=== PATIENT | female | born 1945 | race Caucasian/White ===

== ENCOUNTER 2017-03-16 16:49 | Emergency (ER) | payer MEDICAID ==
[~2017-03-16] VITALS: Ht 170.2 cm; Wt 117.9 kg
[~2017-03-16 16:49] MED LIST: ADALAT10 MG ORAL; VASOTEC10 MG ORAL
[2017-03-16] MEDS ORDERED: ATORVASTATIN CA20 MG ORAL (17:20)
[2017-03-16] MEDS ORDERED: ASPIR 8181 MG ORAL (17:20)
[2017-03-16] MEDS ORDERED: ENALAPRIL MALEA20 MG ORAL (17:20)
[2017-03-16] MEDS ORDERED: FUROSEMIDE40 MG ORAL (17:20)
[2017-03-16 17:38] VITALS: BP 102/62
[2017-03-16] MEDS ORDERED: TRAMADOL HCL50 MG ORAL (17:44)
[2017-03-16] MEDS ORDERED: SILVADENE20 GM TP (17:44)
[2017-03-16] MEDS ORDERED: Norco 5mg/325mg tab ORAL ONE (17:45)
[2017-03-16 18:16] VITALS: BP 102/62
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
== END 2017-03-16 18:18 | disposition home or self-care (01) ==
LOC: EMR 17:31
DX: T23.202A Burn of second degree of left hand, unspecified site, initial encounter (principal); X12.XXXA Contact with other hot fluids, initial encounter; Y93.G3 Activity, cooking and baking; Y92.9 Unspecified place or not applicable; I10 Essential (primary) hypertension
CPT/HCPCS: 16020; 99283; Z7502

== ENCOUNTER 2017-09-01 08:07 | Emergency (ER) | payer MEDICAID ==
[~2017-09-01] VITALS: Ht 177.8 cm; Wt 86.2 kg
[~2017-09-01 08:07] MED LIST changes: +ASPIR 8181 MG ORAL; +ATORVASTATIN CA20 MG ORAL; +ENALAPRIL MALEA20 MG ORAL; +FUROSEMIDE40 MG ORAL; +SILVADENE20 GM TP; +TRAMADOL HCL50 MG ORAL
[2017-09-01 08:25] VITALS: BP 146/65
--- NOTE | 2017-09-01 08:42 | Emergency Room Report ---
History of Present Illness General Chief Complaint: Upper Respiratory Illness Source: Patient Present Illness HPI This patient states that she has had an intermittent cough for the past couple weeks. Over the past 24 hours she has had worsening symptoms. She has had some sputum production. She states that she has chest pain with coughing and a sore throat. She denies fever or chills. She denies nausea or vomiting. She does have a history of 20 years of tobacco use. However, she quit smoking tobacco 10 years ago. She denies other drug or alcohol use. She does has a history of diabetes, hypertension and angina. She denies that she receive the seasonal influenza immunization this season. She has no other complaints. Allergies: Coded Allergies: No Known Allergies (Unverified , 04/09/16) Patient History Past Medical History: see triage record, DM, HTN, CAD Social History: Denies: smoking, alcohol use, drug use Reviewed Nursing Documentation: PMH: Agreed; PSxH: Agreed Nursing Documentation-PMH Past Medical History: No History, Except For Hx Hypertension: Yes Review of Systems All Other Systems: negative except mentioned in HPI Physical Exam Vital Signs Date Time Temp Pulse Resp B/P (MAP) Pulse Ox O2 Delivery O2 Flow Rate FiO2 09/01/17 08:12 98.1 70 20 156/105 96 Room Air 98.1 Sp02 EP Interpretation: reviewed, normal General Appearance: no apparent distress, alert, GCS 15, non-toxic Head: normocephalic, atraumatic Eyes: bilateral eye normal inspection, bilateral eye PERRL ENT: hearing grossly normal, normal pharynx, no angioedema, normal voice Neck: full range of motion, supple/symm/no masses Respiratory: chest non-tender, lungs clear, normal breath sounds, no respiratory distress, no retraction, no accessory muscle use, speaking full sentences Cardiovascular #1: regular rate, rhythm, no edema Gastrointestinal: normal bowel sounds, non tender, soft, non-distended, no guarding, no rebound Rectal: deferred Musculoskeletal: back normal, gait/station normal, normal range of motion, non- tender Neurologic: alert, oriented x3, responsive, motor strength/tone normal, sensory intact, speech normal Psychiatric: judgement/insight normal, memory normal, mood/affect normal, no suicidal/homicidal ideation Skin: normal color, no rash, warm/dry, well hydrated Lymphatic: other - Anterior cervical SHRUTHI Medical Decision Making Diagnostic Impression: Primary Impression: Upper respiratory infection Additional Impression: UTI (urinary tract infection) ER Course This patient has a clinical presentation with upper respiratory tract infection. The evaluation was very reassuring with a normal lung exam, no respiratory distress, normal pulse oximetry. There is no obvious opacity on chest x-ray. The patient has a history of diabetes and has had 2 weeks of ongoing cough. I'm concerned that this patient could deteriorate and so I felt that I should put this patient on a course of antibiotics as a precaution. It is more likely that this is viral, however, given the length of symptoms and the sputum production in the patient is diabetic and 71 years old, I felt that I should go ahead and treat with a course of antibiotics. Patient had no wheezing on exam. The patient's UA was slightly positive. The patient is asymptomatic for UTI. I will treat with an abx that will cover respiratory and UTI. Overall, the patient is well-appearing and nontoxic. The patient is given very close return precautions and follow-up instructions. I will treat supportively with cough suppressants. No emergency medical condition was identified. Laboratory Tests Test 09/01/17 08:35 09/01/17 08:58 White Blood Count 8.4 K/UL (4.8-10.8) Red Blood Count 3.76 M/UL (4.20-5.40) L Hemoglobin 11.4 G/DL (12.0-16.0) L Hematocrit 35.2 % (37.0-47.0) L Mean Corpuscular Volume 94 FL (80-99) Mean Corpuscular Hemoglobin 30.4 PG (27.0-31.0) Mean Corpuscular Hemoglobin Concent 32.5 G/DL (32.0-36.0) Red Cell Distribution Width 12.6 % (11.6-14.8) Platelet Count 224 K/UL (150-450) Mean Platelet Volume 7.4 FL (6.5-10.1) Neutrophils (%) (Auto) 64.0 % (45.0-75.0) Lymphocytes (%) (Auto) 23.6 % (20.0-45.0) Monocytes (%) (Auto) 9.7 % (1.0-10.0) Eosinophils (%) (Auto) 1.8 % (0.0-3.0) Basophils (%) (Auto) 1.0 % (0.0-2.0) Sodium Level 140 MMOL/L (136-145) Potassium Level 4.1 MMOL/L (3.5-5.1) Chloride Level 107 MMOL/L (98-107) Carbon Dioxide Level 26 MMOL/L (21-32) Anion Gap 7 mmol/L (5-15) Blood Urea Nitrogen 18 mg/dL (7-18) Creatinine 1.1 MG/DL (0.55-1.30) Estimate Glomerular Filtration Rate 49.3 mL/min (>60) Glucose Level 104 MG/DL (74-106) Calcium Level 9.2 MG/DL (8.5-10.1) Total Bilirubin 0.5 MG/DL (0.2-1.0) Aspartate Amino Transferase (AST) 23 U/L (15-37) Alanine Aminotransferase (ALT) 27 U/L (12-78) Alkaline Phosphatase 77 U/L (46-116) Troponin I 0.000 ng/mL (0.000-0.056) Total Protein 7.4 G/DL (6.4-8.2) Albumin 3.1 G/DL (3.4-5.0) L Globulin 4.3 g/dL Albumin/Globulin Ratio 0.7 (1.0-2.7) L Urine Color Pale yellow Urine Appearance Slightly cloudy Urine pH 5 (4.5-8.0) Urine Specific [place] 1.015 (1.005-1.035) Urine Protein Negative (NEGATIVE) Urine Glucose (UA) Negative (NEGATIVE) Urine Ketones Negative (NEGATIVE) Urine Occult Blood 2+ (NEGATIVE) H Urine Nitrite Negative (NEGATIVE) Urine Bilirubin Negative (NEGATIVE) Urine Urobilinogen Normal MG/DL (0.0-1.0) Urine Leukocyte Esterase 2+ (NEGATIVE) H Urine RBC 2-4 /HPF (0 - 2) H Urine WBC 5-10 /HPF (0 - 2) H Urine Squamous Epithelial Cells Few /LPF (NONE/OCC) Urine Bacteria Few /HPF (NONE) Microbiology Date/Time Source Procedure Growth Status 09/01/17 08:38 Nasal Nares Left Influenza Types A,B Antigen (KEE) - Final Complete Laboratory Tests Test 09/01/17 08:35 09/01/17 08:58 White Blood Count 8.4 K/UL (4.8-10.8) Red Blood Count 3.76 M/UL (4.20-5.40) L Hemoglobin 11.4 G/DL (12.0-16.0) L Hematocrit 35.2 % (37.0-47.0) L Mean Corpuscular Volume 94 FL (80-99) Mean Corpuscular Hemoglobin 30.4 PG (27.0-31.0) Mean Corpuscular Hemoglobin Concent 32.5 G/DL (32.0-36.0) Red Cell Distribution Width 12.6 % (11.6-14.8) Platelet Count 224 K/UL (150-450) Mean Platelet Volume 7.4 FL (6.5-10.1) Neutrophils (%) (Auto) 64.0 % (45.0-75.0) Lymphocytes (%) (Auto) 23.6 % (20.0-45.0) Monocytes (%) (Auto) 9.7 % (1.0-10.0) Eosinophils (%) (Auto) 1.8 % (0.0-3.0) Basophils (%) (Auto) 1.0 % (0.0-2.0) Sodium Level 140 MMOL/L (136-145) Potassium Level 4.1 MMOL/L (3.5-5.1) Chloride Level 107 MMOL/L (98-107) Carbon Dioxide Level 26 MMOL/L (21-32) Anion Gap 7 mmol/L (5-15) Blood Urea Nitrogen 18 mg/dL (7-18) Creatinine 1.1 MG/DL (0.55-1.30) Estimate Glomerular Filtration Rate 49.3 mL/min (>60) Glucose Level 104 MG/DL (74-106) Calcium Level 9.2 MG/DL (8.5-10.1) Total Bilirubin 0.5 MG/DL (0.2-1.0) Aspartate Amino Transferase (AST) 23 U/L (15-37) Alanine Aminotransferase (ALT) 27 U/L (12-78) Alkaline Phosphatase 77 U/L (46-116) Troponin I 0.000 ng/mL (0.000-0.056) Total Protein 7.4 G/DL (6.4-8.2) Albumin 3.1 G/DL (3.4-5.0) L Globulin 4.3 g/dL Albumin/Globulin Ratio 0.7 (1.0-2.7) L Urine Color Pending Urine Appearance Pending Urine pH Pending Urine Specific [place] Pending Urine Protein Pending Urine Glucose (UA) Pending Urine Ketones Pending Urine Occult Blood Pending Urine Nitrite Pending Urine Bilirubin Pending Urine Urobilinogen Pending Urine Leukocyte Esterase Pending Microbiology Date/Time Source Procedure Growth Status 09/01/17 08:38 Nasal Nares Left Influenza Types A,B Antigen (KEE) - Final Complete EKG Diagnostic Results Rate: normal Rhythm: NSR ST Segments: other - NSST findings. No comparison available. Rhythm Strip Diag. Results EP Interpretation: yes Rate: 60's Rhythm: NSR, no PVC's, no ectopy Chest X-Ray Diagnostic Results Chest X-Ray Diagnostic Results : Chest X-Ray Ordered: Yes # of Views/Limited/Complete: 1 View Indication: Other - cough EP Interpretation: Yes Interpretation: no consolidation, no effusion, no pneumothorax, no acute cardiopulmonary disease, other - cardiomegaly Impression: No acute disease Electronically Signed by: Ayesha Last Vital Signs Date Time Temp Pulse Resp B/P (MAP) Pulse Ox O2 Delivery O2 Flow Rate FiO2 09/01/17 08:25 98.1 82 20 146/65 96 Room Air 98.1 Status: improved Disposition: HOME, SELF-CARE Condition: Improved Scripts Moxifloxacin HCl (Moxifloxacin HCl) 400 Mg Tablet 400 MG PO once daily for 5 Days, #5 TAB Prov: SABRINA MARSHALL D.O. 09/01/17 Benzonatate* (TESSALON PERLJagjit*) 100 Mg Capsule 100 MG ORAL THREE TIMES A DAY, #21 PERLE Prov: SABRINA MARSHALL D.O. 09/01/17 Dextromethorphan Hb/Doxylamine (ROBITUSSIN NIGHTTIME COUGH DM) 237 Ml Liquid 5 ML PO Q4HR for cough, #237 ML Prov: SABRINA MARSHALL D.O. 09/01/17 Referrals: [facility],REFERRING (PCP) Patient Instructions: Upper Respiratory Infection, Adult SABRINA MARSHALL D.O. September 01, 2017 08:42
[2017-09-01 08:57] LABS: EOSINOPHILS % (AUTO) 1.8 % (0.0-3.0); HEMATOCRIT 35.2 % (37.0-47.0); HEMOGLOBIN 11.4 G/DL (12.0-16.0); LYMPHOCYTES % (AUTO) 23.6 % (20.0-45.0); MEAN CORPUSCULAR VOLUME 94 FL (80-99); MONOCYTES % (AUTO) 9.7 % (1.0-10.0); PLATELET COUNT 224 K/UL (150-450); RED BLOOD COUNT 3.76 M/UL (4.20-5.40); RED CELL DISTRIBUTION WIDTH 12.6 % (11.6-14.8); WHITE BLOOD COUNT 8.4 K/UL (4.8-10.8)
[2017-09-01 09:08] LABS: ANION GAP 7 mmol/L (5-15); BLOOD UREA NITROGEN 18 mg/dL (7-18); CALCIUM 9.2 MG/DL (8.5-10.1); CARBON DIOXIDE 26 MMOL/L (21-32); CHLORIDE 107 MMOL/L (98-107); CREATININE 1.1 MG/DL (0.55-1.30); POTASSIUM 4.1 MMOL/L (3.5-5.1); SODIUM 140 MMOL/L (136-145)
[2017-09-01 09:12] LABS: ALANINE AMINOTRANSFERASE 27 U/L (12-78); ALBUMIN 3.1 G/DL (3.4-5.0); ALBUMIN/GLOBULIN RATIO 0.7 (1.0-2.7); ALKALINE PHOSPHATASE 77 U/L (46-116); ASPARTATE AMINO TRANSFERASE 23 U/L (15-37); BILIRUBIN,TOTAL 0.5 MG/DL (0.2-1.0)
[2017-09-01 09:26] LABS: BILIRUBIN, URINE NEGATIVE (NEGATIVE); COLOR,URINE PALE YELLOW; GLUCOSE, URINE (UA) NEGATIVE (NEGATIVE); KETONES,URINE NEGATIVE (NEGATIVE); LEUKOCYTE ESTERASE ,URINE 2+ (NEGATIVE); NITRITE,URINE NEGATIVE (NEGATIVE); PH,URINE 5 (4.5-8.0); PROTEIN,URINE NEGATIVE (NEGATIVE); UROBILINOGEN,URINE NORMAL MG/DL (0.0-1.0)
[2017-09-01] MEDS ORDERED: ROBITUSSIN NIG237 ML PO (09:28)
[2017-09-01] MEDS ORDERED: TESSALON PERLE100 MG ORAL (09:28)
[2017-09-01] MEDS ORDERED: ZITHROMAX250 MG ORAL (09:28)
[2017-09-01 09:33] LABS: APPEARANCE,URINE SLIGHTLY CLOUDY
[2017-09-01] MEDS ORDERED: MOXIFLOXACIN H400 MG PO (09:53)
[2017-09-01 10:22] VITALS: BP 132/76
--- NOTE | 2017-09-01 11:47 | Diagnostic Imaging Report ---
Indication: Chest pain Technique: One view of the chest Comparison: none Findings: Lungs and pleural spaces are clear. Heart size is normal Impression: No acute process
--- NOTE | 2017-09-04 14:01 | Cardiology Report ---
APPROVED REPORT EKG Measurement Heart [id number] PA [id number] Sinus rhythm with marked sinus arrhythmia Low voltage QRS Nonspecific ST and T wave abnormality Abnormal ECG
== END 2017-09-01 10:28 | disposition home or self-care (01) ==
LOC: EMR 08:36
DX: J06.9 Acute upper respiratory infection, unspecified (principal); N39.0 Urinary tract infection, site not specified; I10 Essential (primary) hypertension
CPT/HCPCS: 36415; 71045; 80053; 81003; 84484; 85025; 86710; 87040; 93005; 99284

== ENCOUNTER 2017-09-10 19:05 | Inpatient (IN) | payer MEDICAID ==
[~2017-09-10] VITALS: Ht 165.1 cm; Wt 119.7 kg
[~2017-09-10 19:05] MED LIST changes: +MOXIFLOXACIN H400 MG PO; +ROBITUSSIN NIG237 ML PO; +TESSALON PERLE100 MG ORAL; +ZITHROMAX250 MG ORAL
[2017-09-10 19:20] VITALS: BP 115/69
--- NOTE | 2017-09-10 19:21 | Emergency Room Report ---
History of Present Illness General Chief Complaint: Upper Respiratory Illness Source: Patient Present Illness HPI Patient returns. She's had 2 weeks of upper respiratory infection. She was seen here before and had an x-ray done given a prescription. She was unable to fill the antibiotics. The cough has been persistent. She has wheezes now. She was not prescribed an inhaler. There's no nausea vomiting diarrhea or dysuria. There are no rashes. She denies any chest pain. There's been no fever. She feels weak when she stands up. This began when exposed to grandson dx with pneumonia. Strong family h/o asthma, but no h/o with her. When here 09/01 no wheezes heard. No calf tenderness, swelling. No rashes. Cough is persistent and keeps her awake at night. No recent exposure to TB or travel. Allergies: Coded Allergies: No Known Allergies (Unverified , 04/09/16) Patient History Past Medical History: see triage record Pertinent Family History: asthma Social History: Denies: smoking - significant smoking hx in past Social History Narrative with daughter Reviewed Nursing Documentation: PMH: Agreed; PSxH: Agreed Nursing Documentation-PMH Past Medical History: No History, Except For Hx Hypertension: Yes Review of Systems All Other Systems: negative except mentioned in HPI Physical Exam Vital Signs Date Time Temp Pulse Resp B/P (MAP) Pulse Ox O2 Delivery O2 Flow Rate FiO2 09/10/17 19:07 98.2 82 20 151/70 94 Room Air 98.2 Sp02 EP Interpretation: reviewed, abnormal - slightly low General Appearance: well appearing, no apparent distress, GCS 15 Head: normocephalic Eyes: bilateral eye normal inspection, bilateral eye PERRL ENT: moist mucus membranes Neck: supple Respiratory: chest non-tender, respiratory distress - mild, wheezing, expiration, inspiration, other Cardiovascular #1: regular rate, rhythm, no edema Cardiovascular #2: 2+ radial (R) Gastrointestinal: normal inspection, normal bowel sounds, non tender, no mass, non-distended Genitourinary: no CVA tenderness Musculoskeletal: back normal, gait/station normal - with weakness, normal range of motion, no calf tenderness, Gaby's Sign negative Neurologic: alert, oriented x3, grossly normal Psychiatric: mood/affect normal Skin: normal inspection, warm/dry Medical Decision Making Diagnostic Impression: Primary Impression: Status asthmaticus Qualified Codes: J45.52 - Severe persistent asthma with status asthmaticus ER Course Patient with 2 weeks of URI. Differential includes pneumonia, bronchospasm, asthma, acute myocardial infarction, atypical pneumonia, tuberculosis amongst others. Evaluation will be with EKG and labs. Daughter does not want another x -ray done at this time. We'll see what her responses to treatment before deciding on that. She'll be treated with Solu Medrol, albuterol, Atrovent and given a dose of azithromycin, EKG without injury. Labs with normal white count. Troponin is negative. BNP is minimally elevated. Patient minimally improved with aggressive treatment. Continuing to repeat albuterol here. She continues to have significant bronchospasm. Magnesium and more albuterol are ordered at this time. Also guaifenesin and codeine. Review the patient's history centered around the family history of asthma. The patient needs hospitalization for continued treatment at this time. This is discussed with the daughter. A chest x-ray has now been agreed upon. CXR clear. Some improvement with most recent battery of albuterol and IV magnesium. Still exp wheezes and minimal exertional capacity. Discussed with Dr. Pickard who agrees with admission. Laboratory Tests Test 09/10/17 19:45 White Blood Count 9.9 K/UL (4.8-10.8) Red Blood Count 4.08 M/UL (4.20-5.40) L Hemoglobin 12.6 G/DL (12.0-16.0) Hematocrit 36.9 % (37.0-47.0) L Mean Corpuscular Volume 91 FL (80-99) Mean Corpuscular Hemoglobin 30.9 PG (27.0-31.0) Mean Corpuscular Hemoglobin Concent 34.2 G/DL (32.0-36.0) Red Cell Distribution Width 11.9 % (11.6-14.8) Platelet Count 296 K/UL (150-450) Mean Platelet Volume 6.6 FL (6.5-10.1) Neutrophils (%) (Auto) 61.5 % (45.0-75.0) Lymphocytes (%) (Auto) 25.5 % (20.0-45.0) Monocytes (%) (Auto) 10.1 % (1.0-10.0) H Eosinophils (%) (Auto) 1.8 % (0.0-3.0) Basophils (%) (Auto) 1.1 % (0.0-2.0) Urine Color [place] Urine Appearance Clear Urine pH 6 (4.5-8.0) Urine Specific [place] 1.025 (1.005-1.035) Urine Protein 2+ (NEGATIVE) H Urine Glucose (UA) Negative (NEGATIVE) Urine Ketones 1+ (NEGATIVE) H Urine Occult Blood 1+ (NEGATIVE) H Urine Nitrite Negative (NEGATIVE) Urine Bilirubin Negative (NEGATIVE) Urine Ictotest Negative Urine Urobilinogen 1 MG/DL (0.0-1.0) H Urine Leukocyte Esterase 1+ (NEGATIVE) H Urine RBC 0-2 /HPF (0 - 2) Urine WBC 10-15 /HPF (0 - 2) H Urine Squamous Epithelial Cells Many /LPF (NONE/OCC) H Urine Calcium Oxalate Crystals Many /LPF (NONE) Urine Other Crystals Moderate /LPF (NONE) H Urine Bacteria Many /HPF (NONE) H Sodium Level 139 MMOL/L (136-145) Potassium Level 3.9 MMOL/L (3.5-5.1) Chloride Level 104 MMOL/L (98-107) Carbon Dioxide Level 25 MMOL/L (21-32) Anion Gap 10 mmol/L (5-15) Blood Urea Nitrogen 22 mg/dL (7-18) H Creatinine 1.3 MG/DL (0.55-1.30) Estimate Glomerular Filtration Rate 40.5 mL/min (>60) Glucose Level 113 MG/DL (74-106) H Lactic Acid Level 1.40 mmol/L (0.66-2.22) Calcium Level 10.0 MG/DL (8.5-10.1) Total Bilirubin 0.3 MG/DL (0.2-1.0) Aspartate Amino Transferase (AST) 23 U/L (15-37) Alanine Aminotransferase (ALT) 30 U/L (12-78) Alkaline Phosphatase 94 U/L (46-116) Total Creatine Kinase 166 U/L (26-308) Troponin I 0.000 ng/mL (0.000-0.056) Pro-B-Type Natriuretic Peptide 279 pg/mL (0-125) H Total Protein 8.4 G/DL (6.4-8.2) H Albumin 3.4 G/DL (3.4-5.0) Globulin 5.0 g/dL Albumin/Globulin Ratio 0.7 (1.0-2.7) L EKG Diagnostic Results Rate: normal Rhythm: NSR ST Segments: no acute changes Rhythm Strip Diag. Results EP Interpretation: yes Rhythm: NSR, no PVC's, no ectopy Chest X-Ray Diagnostic Results Chest X-Ray Diagnostic Results : Chest X-Ray Ordered: Yes # of Views/Limited/Complete: 1 View Indication: Shortness of Breath EP Interpretation: Yes Interpretation: no consolidation, no effusion, no pneumothorax Impression: No acute disease Electronically Signed by: Declan Ty MD Last Vital Signs Date Time Temp Pulse Resp B/P (MAP) Pulse Ox O2 Delivery O2 Flow Rate FiO2 09/10/17 21:20 97 13 100 Room Air 21 09/10/17 21:20 150/53 09/10/17 19:07 98.2 98.2 Status: improved Disposition: ADMITTED INPATIENT Condition: Serious Declan Ty M.D. September 10, 2017 19:21
[2017-09-10] MEDS ORDERED: Azithromycin 500 MG in NS 275 ML IV ONE (19:30)
[2017-09-10] MEDS ORDERED: Ipratropium 0.02% Inh Soln 2.5ml UD HHN ONE (19:30)
[2017-09-10] MEDS ORDERED: Solu-MEDROL 125mg Inj IVP ONE (19:30)
[2017-09-10] MEDS ORDERED: Albuterol ud Inhalation HHN ONE ×2 (19:30→20:00)
[2017-09-10] MEDS ORDERED: guaiFENesin w/Codeine 5ml Liq ud ORAL STA (19:50)
[2017-09-10 20:32] LABS: APPEARANCE,URINE CLEAR; BILIRUBIN, URINE NEGATIVE (NEGATIVE); COLOR,URINE AMBER; GLUCOSE, URINE (UA) NEGATIVE (NEGATIVE); KETONES,URINE 1+ (NEGATIVE); LEUKOCYTE ESTERASE ,URINE 1+ (NEGATIVE); NITRITE,URINE NEGATIVE (NEGATIVE); PH,URINE 6 (4.5-8.0); PROTEIN,URINE 2+ (NEGATIVE); UROBILINOGEN,URINE 1 MG/DL (0.0-1.0)
[2017-09-10 20:38] LABS: BASOPHILS % (AUTO) 1.1 % (0.0-2.0); EOSINOPHILS % (AUTO) 1.8 % (0.0-3.0); HEMATOCRIT 36.9 % (37.0-47.0); HEMOGLOBIN 12.6 G/DL (12.0-16.0); LYMPHOCYTES % (AUTO) 25.5 % (20.0-45.0); MEAN CORPUSCULAR VOLUME 91 FL (80-99); MONOCYTES % (AUTO) 10.1 % (1.0-10.0); NEUTROPHILS % (AUTO) 61.5 % (45.0-75.0); PLATELET COUNT 296 K/UL (150-450); RED BLOOD COUNT 4.08 M/UL (4.20-5.40); RED CELL DISTRIBUTION WIDTH 11.9 % (11.6-14.8); WHITE BLOOD COUNT 9.9 K/UL (4.8-10.8)
[2017-09-10 20:39] LABS: ANION GAP 10 mmol/L (5-15); BLOOD UREA NITROGEN 22 mg/dL (7-18); CARBON DIOXIDE 25 MMOL/L (21-32); CHLORIDE 104 MMOL/L (98-107); CREATININE 1.3 MG/DL (0.55-1.30); POTASSIUM 3.9 MMOL/L (3.5-5.1); SODIUM 139 MMOL/L (136-145)
[2017-09-10 20:50] LABS: ALANINE AMINOTRANSFERASE 30 U/L (12-78); ALBUMIN 3.4 G/DL (3.4-5.0); ALBUMIN/GLOBULIN RATIO 0.7 (1.0-2.7); ALKALINE PHOSPHATASE 94 U/L (46-116); ASPARTATE AMINO TRANSFERASE 23 U/L (15-37); BILIRUBIN,TOTAL 0.3 MG/DL (0.2-1.0); CREATINE KINASE 166 U/L (26-308)
[2017-09-10] MEDS: Albuterol ud Inhalation HHN SCH ×4 (21:18→21:51)
[2017-09-10 21:20] VITALS: BP 150/53
[2017-09-10] MEDS ORDERED: Albuterol ud Inhalation HHN PRN ×2 (22:00→22:15)
[2017-09-10] MEDS ORDERED: Albuterol/Ipratropium 3ml neb HHN PRN ×2 (22:00→22:15)
[2017-09-10] MEDS ORDERED: Aspirin Baby 81mg ORAL ONE (22:00)
[2017-09-10] MEDS: D5NS 1,000 ML IV SCH (23:01)
[2017-09-10] MEDS: Heparin 5000 units/ml inj SUBQ SCH (23:03)
[2017-09-10 23:20] VITALS: BP 155/54
[2017-09-11] VITALS: BP 151/48
[2017-09-11] MEDS: Solu-MEDROL 125mg Inj IVP SCH ×2 (01:06→05:33)
[2017-09-11 04:00] VITALS: BP 113/70
[2017-09-11] MEDS: Heparin 5000 units/ml inj SUBQ SCH ×3 (05:33→20:56)
[2017-09-11 08:00] VITALS: BP 120/59
--- NOTE | 2017-09-11 08:11 | Consultation ---
Consult Note Consult Note acute bronchospasm cxr negative PLAN taper solumedrol add advair albuterol dc plan in am if stable Mohsen Hunter MD September 11, 2017 08:11
--- NOTE | 2017-09-11 08:56 | Diagnostic Imaging Report ---
Indication: Reason For Exam: DYSPNEA. Technique: XRAY Chest 1v. Comparison: 09/01/2017 Findings: The heart is normal in size. The lungs are clear. No pleural fluid. There is atherosclerotic change of the aorta. The bones are unremarkable. Impression: Atherosclerotic change. Otherwise negative chest.
[2017-09-11 09:25] LABS: HEMATOCRIT 33.6 % (37.0-47.0); HEMOGLOBIN 11.3 G/DL (12.0-16.0); MEAN CORPUSCULAR VOLUME 92 FL (80-99); PLATELET COUNT 270 K/UL (150-450); RED BLOOD COUNT 3.67 M/UL (4.20-5.40); RED CELL DISTRIBUTION WIDTH 12.3 % (11.6-14.8); WHITE BLOOD COUNT 13.5 K/UL (4.8-10.8)
[2017-09-11 09:33] LABS: ANION GAP 12 mmol/L (5-15); BLOOD UREA NITROGEN 19 mg/dL (7-18); CALCIUM 9.3 MG/DL (8.5-10.1); CARBON DIOXIDE 21 MMOL/L (21-32); CHLORIDE 106 MMOL/L (98-107); CREATININE 1.1 MG/DL (0.55-1.30); POTASSIUM 3.6 MMOL/L (3.5-5.1); SODIUM 139 MMOL/L (136-145)
[2017-09-11] MEDS: Advair 250/50 Inhaler - 14 dose INH SCH ×2 (10:40→17:32)
[2017-09-11 12:00] VITALS: BP 124/63
--- NOTE | 2017-09-11 12:00 | Consultation ---
DATE OF CONSULTATION: 09/11/2017 PULMONARY CONSULTATION CONSULTING PHYSICIAN: Mohsen Hunter M.D. REASON FOR ADMISSION: Asthma. HISTORY OF PRESENT ILLNESS: The patient is a 72-year-old female with upper respiratory tract infection. The patient with noted wheezing and shortness of breath. The patient apparently was given antibiotics, but did not fill the antibiotics. The patient presents with shortness of breath. The patient now admitted for further management and intervention. PAST MEDICAL HISTORY: Notable for the above. The patient does have history of hypercholesterolemia, history of hypertension, and questionable history of asthma. MEDICATIONS: Reviewed. ALLERGIES: Reviewed. SOCIAL HISTORY: Nonsmoker and nondrinker. The patient is of [place] descent. PHYSICAL EXAMINATION: GENERAL: A well-developed female, comfortable at present. The patient is feeling much better. VITAL SIGNS: Notable for heart rate of 92, blood pressure 151/48, and oxygen saturation 97%. HEENT: Negative. NECK: Supple. LUNGS: With good air entry with only minimal wheezes at present. CARDIAC: Normal S1 and S2. Regular rate and rhythm. ABDOMEN: Soft and obese. EXTREMITIES: No edema. IMPRESSION: 1. Asthma with acute exacerbation. 2. Evidence of acute bronchospasm. Negative chest x-ray. RECOMMENDATION: IV Solu-Medrol. Start Advair 250 one puff twice a day. Cough syrup. DVT prophylaxis. Albuterol as needed. Taper steroids and reevaluate in the a.m. If stable, we will proceed with discharge planning and short prednisone taper. Mohsen Hunter M.D. DR: TEGAN JOB#: [id number] CC:
[2017-09-11] MEDS ORDERED: LOSARTAN POTASS50 MG ORAL (12:48)
[2017-09-11] MEDS ORDERED: ASPIR 8181 MG ORAL (12:50)
[2017-09-11] MEDS ORDERED: MELOXICAM15 MG PO (12:50)
[2017-09-11] MEDS ORDERED: OMEPRAZOLE20 M2 ORAL (12:51)
[2017-09-11] MEDS: D5NS 1,000 ML IV SCH (12:57)
[2017-09-11] MEDS: Solu-MEDROL 40mg Inj IVP SCH ×3 (12:57→23:14)
[2017-09-11 16:00] VITALS: BP 116/55
[2017-09-11] MEDS ORDERED: D5NS 1000ml IV ONE (16:27)
[2017-09-11] MEDS ORDERED: guaiFENesin 100mg/5ml Liq ud ORAL PRN (19:00)
[2017-09-11 20:00] VITALS: BP 135/59
[2017-09-12] VITALS: BP 111/63
[2017-09-12 04:00] VITALS: BP 119/62
[2017-09-12] MEDS: Solu-MEDROL 40mg Inj IVP SCH ×2 (05:42→12:00)
[2017-09-12] MEDS: Heparin 5000 units/ml inj SUBQ SCH (05:43)
--- NOTE | 2017-09-12 07:42 | Discharge Instructions ---
Discharge Instructions Discharge Instructions Diet: 2 GM sodium (low sodium) Resume Normal Activity?: Yes Activity: resume normal activities Pneumonia Vaccine: vaccine not indicated Influenza Vaccine (Jan to Jun): vaccine not indicated Follow Up Orders F/U with PCP 1 week For Congestive Heart Failure Reminder Report to your physician any weight gain of 5 pounds or more in one week. Vinny Pickard M.D. September 12, 2017 07:42
[2017-09-12 08:00] VITALS: BP 131/59
[2017-09-12] MEDS: Advair 250/50 Inhaler - 14 dose INH SCH (09:34)
--- NOTE | 2017-09-12 10:14 | Pulmonology Progress Note ---
Assessment/Plan Assessment/Plan asthma exacerbation shortness of breath PLAN dc home inhaled steroids and LABA on discharge medrol genaro outpatient follow up Subjective Allergies: Coded Allergies: No Known Allergies (Unverified , 04/09/16) Subjective improved Objective Last 24 Hour Vital Signs Date Time Temp Pulse Resp B/P (MAP) Pulse Ox O2 Delivery O2 Flow Rate FiO2 09/12/17 09:34 79 16 Room Air 21 09/12/17 09:34 79 18 98 Room Air 21 09/12/17 09:34 79 18 98 Room Air 21 09/12/17 09:34 21 09/12/17 08:00 98.7 88 18 131/59 95 Room Air 98.7 09/12/17 04:00 99.6 78 20 119/62 94 Room Air 99.6 09/12/17 04:00 86 09/12/17 00:00 71 09/12/17 00:00 98.6 83 20 111/63 94 Room Air 98.6 09/11/17 20:00 75 09/11/17 20:00 98.6 78 20 135/59 93 Room Air 98.6 09/11/17 19:40 77 16 Room Air 21 09/11/17 16:00 71 09/11/17 16:00 97.4 67 20 116/55 94 Room Air 97.4 09/11/17 12:00 83 09/11/17 12:00 98.0 80 20 124/63 91 Room Air 98.0 09/11/17 11:52 82 14 100 Room Air 21 09/11/17 11:42 82 14 98 Room Air 21 09/11/17 11:39 97.9 09/11/17 10:40 97.9 Intake and Output 09/11/17 09/12/17 19:00 07:00 Intake Total 400 ml 120 ml Balance 400 ml 120 ml Intake Oral 400 ml 120 ml # Voids 3 2 Objective WDWN NAD improved wheeze [id number] without MRG NABS nontender no HSM no CCE nonfocal Microbiology Date/Time Source Procedure Growth Status 09/10/17 19:45 Urine,Clean Catch Urine Culture - Preliminary Mixed Gram Positive Organism Resulted Current Medications Medications (Trade) Dose Ordered Sig/Delfina Route PRN Reason Start Time Stop Time Status Last Admin Dose Admin Acetaminophen (Tylenol) 650 mg Q4H PRN ORAL Mild Pain (Pain Scale 1-3) 5/27/18 22:00 10/10/17 21:59 09/11/17 10:40 Albuterol Sulfate (Proventil) 2.5 mg EVERY 4 HOURS PRN HHN Shortness of Breath 09/10/17 22:15 09/15/17 21:59 Atorvastatin Calcium (Lipitor) 20 mg BEDTIME ORAL 09/11/17 21:00 10/11/17 20:59 09/11/17 20:53 Dextrose (Dextrose 50%) 25 ml STAT PRN IV Hypoglycemia 09/10/17 22:00 10/10/17 21:59 Dextrose (Dextrose 50%) 50 ml STAT PRN IV Hypoglycemia 09/10/17 22:00 10/10/17 21:59 Guaifenesin (Robitussin) 200 mg Q4H PRN ORAL For Cough 09/11/17 19:00 10/11/17 18:59 09/11/17 20:53 Heparin Sodium (Porcine) (Heparin 5000 units/ml) 5,000 units EVERY 8 HOURS SUBQ 09/10/17 22:00 10/10/17 21:59 09/12/17 05:43 Methylprednisolone Sodium Succinate (Solu-MEDROL) 40 mg EVERY 6 HOURS IVP 09/11/17 12:00 10/11/17 00:00 09/12/17 05:42 Salmeterol Xinafoate/ Fluticasone (Advair 250/50 Diskus) 1 puffs BID INH 09/11/17 09:00 10/11/17 08:59 09/12/17 09:34 Temazepam (Restoril) 7.5 mg HSPRN PRN ORAL Agitation 09/11/17 19:00 09/18/17 18:59 09/11/17 23:14 Mohsen Hunter MD September 12, 2017 10:14
[2017-09-12 10:31] LABS: HEMATOCRIT 33.1 % (37.0-47.0); HEMOGLOBIN 11.3 G/DL (12.0-16.0); MEAN CORPUSCULAR VOLUME 93 FL (80-99); PLATELET COUNT 281 K/UL (150-450); RED BLOOD COUNT 3.57 M/UL (4.20-5.40); RED CELL DISTRIBUTION WIDTH 12.5 % (11.6-14.8)
[2017-09-12 10:41] LABS: ANION GAP 13 mmol/L (5-15); BLOOD UREA NITROGEN 26 mg/dL (7-18); CALCIUM 9.7 MG/DL (8.5-10.1); CARBON DIOXIDE 21 MMOL/L (21-32); CHLORIDE 106 MMOL/L (98-107); CREATININE 1.2 MG/DL (0.55-1.30); SODIUM 140 MMOL/L (136-145)
[2017-09-12 10:51] LABS: WHITE BLOOD COUNT 25.4 K/UL (4.8-10.8)
--- NOTE | 2017-09-12 18:45 | Discharge Summary ---
DATE OF ADMISSION: 09/10/2017 DATE OF DISCHARGE: 09/12/2017 REASON FOR HOSPITAL ADMISSION: 1. Shortness of breath. 2. Acute bronchospasm. HISTORY OF PRESENT ILLNESS: The patient is a 72-year-old female, who presented to the emergency room for acute bronchospasm and shortness of breath. The patient was having difficulty breathing in the emergency room, was given intravenous steroids along with intravenous fluids. She started to feel much better. She was admitted for further observation. Pulmonary Critical Care, Dr. Hunter was consulted. The patient was started on a steroid taper and recommended to be on albuterol for rescue inhalers along with Advair. The patient the next day, felt much better, still had a small cough, was feeling really well and said that her breathing was back to baseline. The patient also said at this point being back to baseline. She also was requesting discharge with followup with her primary care physician in 1 week. She did well during hospitalization and was stable at the time of discharge. DISCHARGE DISPOSITION: Stable. SLED MAKER DURING HOSPITALIZATION: Mohsen Hunter M.D., Pulmonary. DISCHARGE DIAGNOSES: 1. Acute bronchospasm. 2. Hypertension. FOLLOW-UP POST HOSPITALIZATION DISCHARGE: 1. The patient to follow up with primary care physician this week for continued management. 2. The patient to follow up with Pulmonary to continue to manage and evaluate bronchospasm. NEW MEDICATIONS AT DISCHARGE: 1. Prednisone taper. 2. Advair 250 mcg 1 puff b.i.d. 3. Albuterol rescue inhaler 2-3 puffs as needed. The patient was given 1 month supply with 1 refill and to be followed up with her primary care physician. Vinny Pickard MD DR: RULA JOB#: [id number] CC:
== END 2017-09-12 11:58 | disposition home or self-care (01) | DRG 141 ==
LOC: EMR 19:27 → 2E 21:29 → EDBEDREQ 22:58 → 2E 23:42
DX: J45.901 Unspecified asthma with (acute) exacerbation (principal); I10 Essential (primary) hypertension; E78.00 Pure hypercholesterolemia, unspecified; Z87.891 Personal history of nicotine dependence
CPT/HCPCS: 36415; 71045; 80048; 80053; 81003; 82550; 83605; 83735; 83880; 84484; 85007; 85025; 87086; 93005; 94640; 94664; 99285; J7620

== ENCOUNTER 2018-06-30 19:04 | Emergency (ER) | payer MEDICAID ==
[~2018-06-30] VITALS: Ht 170.2 cm; Wt 117.9 kg
[~2018-06-30 19:04] MED LIST changes: +LOSARTAN POTASS50 MG ORAL; +MELOXICAM15 MG PO; +OMEPRAZOLE20 M2 ORAL
[2018-06-30 19:30] VITALS: BP 155/90
--- NOTE | 2018-06-30 19:30 | NUR ---
ED Nurse Note: pt came in with daughter with chief complaint of cough and sore throat x 2 days. complaining of 5/10 headache. ermd on bedside. will continue to monitor.
--- NOTE | 2018-06-30 19:38 | Emergency Room Report ---
History of Present Illness General Chief Complaint: Flu Like Symptoms Source: Patient Present Illness HPI Patient with 2 days of URI symptoms with sore throat nonproductive cough which is persistent ear pain and throat pain and feverish. She did not get a flu shot last year. Denies any chest pain. Her grandson is ill with similar symptoms. They told her that he has ear and throat infection and antibiotics were prescribed. She denies chest pain. No nausea, vomiting, diarrhea, dysuria , constipation or rashes. A year ago she had an episode where she was hospitalized. She used an inhaler at that time. Allergies: Coded Allergies: No Known Allergies (Unverified , 04/09/16) Patient History Past Medical History: see triage record Social History: Reports: smoking - stopped 10 years ago Social History Narrative With daughter Reviewed Nursing Documentation: PMH: Agreed; PSxH: Agreed Nursing Documentation-PMH Past Medical History: No Stated History Hx Hypertension: Yes Hx Asthma: Yes Hx Cancer: No Hx Gastrointestinal Problems: No Hx Neurological Problems: No Review of Systems All Other Systems: negative except mentioned in HPI Physical Exam Vital Signs Date Time Temp Pulse Resp B/P (MAP) Pulse Ox O2 Delivery O2 Flow Rate FiO2 06/30/18 19:19 98.4 72 16 95 Room Air Sp02 EP Interpretation: reviewed, normal General Appearance: well appearing, no apparent distress, GCS 15, non-toxic, other - Frequent coughing Head: normocephalic, atraumatic Eyes: bilateral eye normal inspection, bilateral eye PERRL ENT: moist mucus membranes, pharyngeal erythema, other - TMs with fluid bilaterally Neck: supple, no meningismus Respiratory: chest non-tender, lungs clear, normal breath sounds Cardiovascular #1: regular rate, rhythm, no edema Cardiovascular #2: 2+ radial (R) Gastrointestinal: normal inspection, normal bowel sounds, non tender, no mass, non-distended Musculoskeletal: back normal, gait/station normal, normal range of motion, no calf tenderness, Gaby's Sign negative Neurologic: alert, oriented x3, grossly normal Psychiatric: mood/affect normal Skin: normal inspection, warm/dry, other - Venous disease Medical Decision Making Diagnostic Impression: Primary Impression: Otitis media Qualified Codes: H66.003 - Acute suppurative otitis media without spontaneous rupture of ear drum, bilateral Additional Impression: Bronchospasm ER Course Patient presents with cough and ear pain. Differential includes bronchospasm, pneumonia, otitis media, pharyngitis, influenza. Due to the lack of fever and muscle aches influenza is less likely. Based on physical exam pulmonary embolus is less likely. EKG, chest x-ray influenza titer are indicated. The patient will be treated with breathing treatments and azithromycin. EKG without injury. Chest x-ray no infiltrates. Influenza negative. After breathing treatment the patient is markedly improved with decreased cough. Discussed treatment plan with patient and daughter. Patient improved and stable for outpatient observation and treatment. Microbiology Date/Time Source Procedure Growth Status 06/30/18 19:45 Nasal Nares Influenza Types A,B Antigen (KEE) - Final Complete EKG Diagnostic Results Rate: normal Rhythm: NSR ST Segments: no acute changes Rhythm Strip Diag. Results EP Interpretation: yes Rhythm: NSR, no PVC's, no ectopy Last Vital Signs Date Time Temp Pulse Resp B/P (MAP) Pulse Ox O2 Delivery O2 Flow Rate FiO2 06/30/18 21:00 98.4 71 19 140/49 94 Room Air 21 Status: improved Disposition: HOME, SELF-CARE Condition: Improved Scripts Inhaler, Assist Devices (E-Z SPACER) 1 Each Spacer EACH , #1 Prov: Declan Ty MD 06/30/18 Guaifenesin/Codeine Phos* (ROBITUSSIN AC*) 118 Ml Liquid 5 ML ORAL Q6H PRN for For Cough, #90 ML 0 Refills Prov: Declan Ty MD 06/30/18 Azithromycin* (ZITHROMAX*) 250 Mg Tablet 250 MG ORAL DAILY, #4 TAB Prov: Declan Ty MD 06/30/18 Albuterol Sulfate* (ALBUTEROL SULFATE MDI*) 8.5 Gm Hfa.aer.ad 2 PUFF INH Q6H, #1 EA 0 Refills Prov: Declan Ty MD 06/30/18 Declan Ty MD Jun 30, 2018 19:38
--- NOTE | 2018-06-30 19:40 | NUR ---
ED Nurse Note: respiratory therapist on bedside giving nebulization to the pt.
[2018-06-30] MEDS ORDERED: Ipratropium 0.02% Inh Soln 2.5ml UD HHN ONE (19:45)
[2018-06-30] MEDS ORDERED: Azithromycin 250mg tab ORAL ONE (19:45)
[2018-06-30] MEDS ORDERED: Albuterol ud Inhalation HHN ONE (19:45)
--- NOTE | 2018-06-30 20:29 | Diagnostic Imaging Report ---
EXAM: XR Chest, 1 View CLINICAL HISTORY: COUGH TECHNIQUE: Frontal view of the chest. COMPARISON: No relevant prior studies available. FINDINGS: Lungs: No consolidation. Pleural space: Unremarkable. No pneumothorax. Heart: Unremarkable. No cardiomegaly. Mediastinum: Unremarkable. Bones/joints: No acute fracture. IMPRESSION: No consolidation.
[2018-06-30 20:46] VITALS: BP 140/49
[2018-06-30 21:00] VITALS: BP 140/49
--- NOTE | 2018-06-30 21:00 | NUR ---
ER DISCHARGE NOTE: Patient is cleared to be discharged per ERMD, pt is aox4, on room air, with stable vital signs. pt was given dc and prescription instructions, pt was able to verbalize understanding, pt id band removed without complications. pt is able to ambulate with steady gait. pt took all belongings.
[2018-06-30] MEDS ORDERED: GUAIFENESIN-CO118 M1 ORAL (21:02)
[2018-06-30] MEDS ORDERED: E-Z SPACER1 EACH MC (21:02)
[2018-06-30] MEDS ORDERED: ALBUTEROL SULF8.5 GM INH (21:02)
[2018-06-30] MEDS ORDERED: ZITHROMAX250 MG ORAL (21:02)
== END 2018-06-30 21:00 | disposition home or self-care (01) ==
LOC: EMR 20:27
DX: H66.93 Otitis media, unspecified, bilateral (principal); J98.01 Acute bronchospasm; J45.909 Unspecified asthma, uncomplicated; I10 Essential (primary) hypertension; Z87.891 Personal history of nicotine dependence
CPT/HCPCS: 71045; 82962; 86710; 93005; 94640; 99284; Q0144

== ENCOUNTER 2018-07-08 13:57 | Emergency (ER) | payer MEDICAID ==
[~2018-07-08] VITALS: Ht 167.6 cm; Wt 117.9 kg
[~2018-07-08 13:57] MED LIST changes: +ALBUTEROL SULF8.5 GM INH; +E-Z SPACER1 EACH MC; +GUAIFENESIN-CO118 M1 ORAL
[2018-07-08 14:16] VITALS: BP 139/73
--- NOTE | 2018-07-08 14:20 | NUR ---
ED Nurse Note: patient walked into ED c/o bilateral ear feel clogged has difficulty hearing on the left ear. patient reports having flu recently. alert and oriented x4 ambulatory.
--- NOTE | 2018-07-08 14:32 | Emergency Room Report ---
History of Present Illness General Chief Complaint: Earache Source: Family Member Present Illness HPI 72-year-old female with no significant past medical history here complaining of left ear pain and left jaw pain 1 week. Patient reports coughing and congested finish azithromycin for sinus infection about a week ago however the ear pain has not gone away and is getting worse. She is rating the pain 7 out of 10, intermittent, without any pus drainage, no new onset fever chills. Patient has an appointment with the primary care provider for next month. Denies chest pain, SOB, palpitation, no other associated symptoms Allergies: Coded Allergies: No Known Allergies (Unverified , 04/09/16) Patient History Past Medical History: see triage record Past Surgical History: none Pertinent Family History: none Now: No Reviewed Nursing Documentation: PMH: Agreed; PSxH: Agreed Nursing Documentation-PMH Hx Hypertension: Yes Hx Asthma: Yes Hx Cancer: No Hx Gastrointestinal Problems: No Hx Neurological Problems: No Review of Systems All Other Systems: negative except mentioned in HPI Physical Exam Vital Signs Date Time Temp Pulse Resp B/P (MAP) Pulse Ox O2 Delivery O2 Flow Rate FiO2 07/08/18 14:16 98.1 74 19 139/73 94 Room Air Sp02 EP Interpretation: reviewed, normal General Appearance: normal inspection, well appearing Head: normocephalic Eyes: bilateral eye normal inspection, bilateral eye PERRL ENT: hearing grossly normal, normal pharynx, other - left ear infx Neck: normal inspection, full range of motion Respiratory: normal inspection, chest non-tender, no wheezing Cardiovascular #1: normal inspection, regular rate, rhythm, no edema Gastrointestinal: normal inspection, normal bowel sounds, non tender Musculoskeletal: normal inspection, back normal Neurologic: normal inspection, alert Psychiatric: judgement/insight normal Skin: normal inspection, normal color, no rash Lymphatic: normal inspection, no adenopathy Medical Decision Making PA Attestation All diagnoses and treatment plans were reviewed and discussed with supervising physician Dr. Kohli Diagnostic Impression: Primary Impression: Otitis media ER Course 72-year-old female with no significant past medical history here complaining of left ear pain and left jaw pain 1 week. Patient reports coughing and congested finish azithromycin for sinus infection about a week ago however the ear pain has not gone away and is getting worse. She is rating the pain 7 out of 10, intermittent, without any pus drainage, no new onset fever chills. Patient has an appointment with the primary care provider for next month. Denies chest pain, SOB, palpitation, no other associated symptoms Ddx considered but are not limited to otitis media, otitis exeterna, mastoiditis Vital signs: are WNL, pt. is afebrile H&PE are most consistent with Otitis media ORDERS: augmentin, ibuprofen ED INTERVENTIONS: None required at this time. DISCHARGE: At this time pt. is stable for d/c to home. Will provide printed patient care instructions, and any necessary prescriptions. Care plan and follow up instructions have been discussed with the patient prior to discharge. fu ENT Last Vital Signs Date Time Temp Pulse Resp B/P (MAP) Pulse Ox O2 Delivery O2 Flow Rate FiO2 07/08/18 14:16 98.1 74 19 139/73 94 Room Air Disposition: HOME, SELF-CARE Condition: Stable Scripts Ibuprofen* (MOTRIN*) 600 Mg Tablet 600 MG ORAL Q8H PRN for For Pain, #30 TAB 0 Refills Prov: Zari Peng 07/08/18 Amoxicillin/Potassium Clav 875-125* (AUGMENTIN 875-125 TABLET*) 1 Each Tablet 1 TAB ORAL TWICE A DAY for 10 Days, #20 TAB Prov: Zari Peng 07/08/18 Patient Instructions: Otitis Media, Adult, [id number] Additional Instructions: follow up with ENT if symptoms worsen. Zari Peng Jul 08, 2018 14:32
[2018-07-08] MEDS ORDERED: IBUPROFEN600 MG ORAL (14:33)
[2018-07-08] MEDS ORDERED: AUGMENTIN 875-1 EAC1 ORAL (14:33)
== END 2018-07-08 15:00 | disposition home or self-care (01) ==
LOC: EMR 14:30
DX: H66.92 Otitis media, unspecified, left ear (principal); I10 Essential (primary) hypertension; J45.909 Unspecified asthma, uncomplicated
CPT/HCPCS: 99282

== ENCOUNTER 2018-10-24 09:28 | Emergency (ER) | payer MEDICAID ==
[~2018-10-24] VITALS: Ht 172.7 cm; Wt 99.8 kg
[~2018-10-24 09:28] MED LIST changes: +AUGMENTIN 875-1 EAC1 ORAL; +IBUPROFEN600 MG ORAL
[2018-10-24] MEDS ORDERED: METFORMIN HCL500 M1 ORAL (09:53)
[2018-10-24] MEDS ORDERED: LOSARTAN-HCTZ1 EAC1 ORAL (09:53)
[2018-10-24] MEDS ORDERED: NIFEDIPINE ER30 M2 ORAL (09:53)
[2018-10-24 09:55] VITALS: BP 147/62
--- NOTE | 2018-10-24 09:57 | NUR ---
ED Nurse Note: pt walked in to ER from home due to diarrhea for last 5 days. pt c/o abdominal pain 6/10 and nausea but no vomiting. pt aao x4 and ambulatory. skin clean and intact. calm and cooperative.
[2018-10-24] MEDS ORDERED: HYDROCORTISONE30 G1 TP (09:58)
[2018-10-24] MEDS ORDERED: OYSCO-500500 M1 PO (09:58)
[2018-10-24] MEDS ORDERED: MAPAP500 M2 PO (09:58)
[2018-10-24] MEDS ORDERED: KETOCONAZOLE 2% (09:58)
[2018-10-24] MEDS ORDERED: Mylanta II UD 30ml ORAL ONE (10:15)
[2018-10-24] MEDS ORDERED: Isovue-300 100ml vial INJ PRN (10:15)
--- NOTE | 2018-10-24 10:15 | Emergency Room Report ---
History of Present Illness General Chief Complaint: Diarrhea Source: Patient Present Illness HPI 73-year-old female past history of hypertension, prediabetes, history of hysterectomy presents with achy abdominal pain x5 days, diarrhea, nausea, reflux -like symptoms, no aggravating or relieving factors, patient has had to use the restroom multiple times with episodes of watery diarrhea she has been feeling weak, no fevers chills chest pain or shortness of breath per patient, patient presents for evaluation of her abdominal pain Allergies: Coded Allergies: No Known Allergies (Unverified , 04/09/16) Patient History Past Medical History: see triage record, DM, HTN Past Surgical History: hysterectomy Pertinent Family History: none Last Menstrual Period: na Reviewed Nursing Documentation: PMH: Agreed; PSxH: Agreed Nursing Documentation-PMH Past Medical History: No History, Except For Hx Hypertension: Yes Hx Asthma: Yes Hx Diabetes: Yes Hx Cancer: No Hx Gastrointestinal Problems: No Hx Neurological Problems: No Review of Systems Constitutional: Reports: weakness; Denies: chills, fever Respiratory: Denies: cough, shortness of breath Cardiovascular: Denies: chest pain Gastrointestinal: Reports: abdominal pain, diarrhea, nausea; Denies: vomiting All Other Systems: negative except mentioned in HPI Physical Exam Vital Signs Date Time Temp Pulse Resp B/P (MAP) Pulse Ox O2 Delivery O2 Flow Rate FiO2 10/24/18 09:38 97.9 68 20 132/57 (82) 100 Room Air Sp02 EP Interpretation: reviewed, normal General Appearance: no apparent distress, alert, GCS 15, non-toxic Head: normocephalic, atraumatic Eyes: bilateral eye normal inspection, bilateral eye PERRL ENT: hearing grossly normal, normal pharynx, no angioedema, normal voice Neck: full range of motion, supple/symm/no masses Respiratory: chest non-tender, lungs clear, normal breath sounds, speaking full sentences Cardiovascular #1: regular rate, rhythm, no edema Cardiovascular #2: 2+ carotid (R), 2+ carotid (L), 2+ radial (R), 2+ radial (L) , 2+ dorsalis pedis (R), 2+ dorsalis pedis (L) Gastrointestinal: soft, non-distended, no guarding, no rebound, other - Tenderness to palpation left lower quadrant Rectal: deferred Genitourinary: normal inspection, no CVA tenderness Musculoskeletal: back normal, gait/station normal, normal range of motion, non- tender, calf tenderness Neurologic: alert, oriented x3, responsive, motor strength/tone normal, speech normal Psychiatric: judgement/insight normal, memory normal, mood/affect normal, no suicidal/homicidal ideation Lymphatic: no adenopathy Medical Decision Making ER Course Patient with diarrheal illness x5 days, most consistent with a gastroenteritis, will CT abdomen pelvis to rule out any other intra-abdominal processes, no evidence of diverticulitis, no evidence of SBO. Patient most likely with a slightly elevated creatinine secondary to diarrhea, no baseline creatinine to compare, may be chronic in nature given history of prediabetes, low suspicion for LUIS Rehydrated, will disposition patient home with return precautions, counseled patient Laboratory Tests Test 10/24/18 10:15 10/24/18 10:40 White Blood Count 9.6 K/UL (4.8-10.8) Red Blood Count 4.11 M/UL (4.20-5.40) L Hemoglobin 12.9 G/DL (12.0-16.0) Hematocrit 38.5 % (37.0-47.0) Mean Corpuscular Volume 94 FL (80-99) Mean Corpuscular Hemoglobin 31.5 PG (27.0-31.0) H Mean Corpuscular Hemoglobin Concent 33.6 G/DL (32.0-36.0) Red Cell Distribution Width 11.5 % (11.6-14.8) L Platelet Count 250 K/UL (150-450) Mean Platelet Volume 6.6 FL (6.5-10.1) Neutrophils (%) (Auto) 64.6 % (45.0-75.0) Lymphocytes (%) (Auto) 20.8 % (20.0-45.0) Monocytes (%) (Auto) 12.5 % (1.0-10.0) H Eosinophils (%) (Auto) 1.4 % (0.0-3.0) Basophils (%) (Auto) 0.8 % (0.0-2.0) Sodium Level 140 MMOL/L (136-145) Potassium Level 3.2 MMOL/L (3.5-5.1) L Chloride Level 103 MMOL/L (98-107) Carbon Dioxide Level 28 MMOL/L (21-32) Anion Gap 9 mmol/L (5-15) Blood Urea Nitrogen 23 mg/dL (7-18) H Creatinine 1.5 MG/DL (0.55-1.30) H Estimate Glomerular Filtration Rate mL/min (>60) Glucose Level 117 MG/DL (74-106) H Calcium Level 9.7 MG/DL (8.5-10.1) Total Bilirubin 0.5 MG/DL (0.2-1.0) Aspartate Amino Transferase (AST) 34 U/L (15-37) Alanine Aminotransferase (ALT) 40 U/L (12-78) Alkaline Phosphatase 113 U/L (46-116) Total Protein 7.9 G/DL (6.4-8.2) Albumin 3.3 G/DL (3.4-5.0) L Globulin 4.6 g/dL Albumin/Globulin Ratio 0.7 (1.0-2.7) L Lipase 181 U/L (73-393) Urine Color Yellow Urine Appearance Slightly cloudy Urine pH 5 (4.5-8.0) Urine Specific [place] 1.020 (1.005-1.035) Urine Protein Negative (NEGATIVE) Urine Glucose (UA) Negative (NEGATIVE) Urine Ketones Negative (NEGATIVE) Urine Blood 1+ (NEGATIVE) H Urine Nitrite Negative (NEGATIVE) Urine Bilirubin Negative (NEGATIVE) Urine Urobilinogen Normal MG/DL (0.0-1.0) Urine Leukocyte Esterase 2+ (NEGATIVE) H Urine RBC 2-4 /HPF (0 - 2) H Urine WBC 2-4 /HPF (0 - 2) Urine Squamous Epithelial Cells Few /LPF (NONE/OCC) Urine Bacteria Few /HPF (NONE) Rhythm Strip Diag. Results Rhythm Strip Time: 12:10 EP Interpretation: yes Rate: 65 Rhythm: NSR, no PVC's, no ectopy CT/MRI/US Diagnostic Results CT/MRI/US Diagnostic Results : Impression Procedure: CT Abdomen Pelvis WO Contrast Indication: Age abdominal pain for 5 days, diarrhea, nausea, reflux-like symptoms Technique: Spiral acquisitions obtained through the abdomen and pelvis. No oral contrast utilized, per emergency room physician request No IV contrast utilized , . History of renal insufficiency.. Multiplanar reconstructions were generated. Total dose length product 1156.34 mGycm. CTDIvol(s) 19.28 mGy. Dose reduction achieved using automated exposure control Comparison: None Findings: Lack of enteric contrast limits assessment of the GI tract. The appendix is not visualized, but there are no findings to suggest acute appendicitis. Liquid stool is seen in the proximal colon, but normal feces demonstrated in the distal colon. There is no evidence of diverticulosis or diverticulitis. Distal small bowel is prominent with distal small bowel loops are fluid-filled. No bobo small bowel distention or transition point demonstrated. The distal esophagus, stomach, duodenum are unremarkable. No free or loculated intraperitoneal gas or fluid is evident. Lack of IV contrast limits assessment of solid organs. The gallbladder is surgically absent. The liver is equivocally somewhat hyperattenuating. The bile ducts, pancreas, spleen, adrenals, kidneys are unremarkable. No retroperitoneal or mesenteric mass or adenopathy. The uterus is absent, presumably postsurgically. No pelvic mass or adenopathy. The included lung bases demonstrate some posterior dependent atelectatic changes, are otherwise clear. The bones demonstrate mild degenerative spondylosis changes. Impression: Limited assessment of the GI tract, due to lack of enteric contrast administration Slightly prominent fluid-filled distal ileum and fluid-filled proximal colon, consistent with stated clinical history of diarrheal illness No acute process otherwise Surgically absent gallbladder and uterus Equivocally slightly hyperattenuating liver, could indicate amiodarone ingestion or storage disease if real Posterior dependent pulmonary atelectatic changes, mild degenerative spondylosis changes incidentally noted. The CT scanner at [facility] is accredited by the [employer] and the scans are performed using protocols designed to limit radiation exposure to as low as reasonably achievable to attain images of sufficient resolution adequate for diagnostic evaluation. Dictated By: Donald Nation MD Electronically Signed By: Donald Nation MD Signed Date/Time 10/24/18 1141 CC: Carlton Villanueva M.D. Last Vital Signs Date Time Temp Pulse Resp B/P (MAP) Pulse Ox O2 Delivery O2 Flow Rate FiO2 10/24/18 09:55 97.7 60 22 147/62 96 Room Air Disposition: HOME, SELF-CARE Condition: Improved Patient Instructions: Diarrhea, Adult, Gastritis, Adult, Viral Gastroenteritis , Adult Additional Instructions: Patient is provided with the discharge instructions notified to follow-up with primary doctor in the next 2-3 days otherwise return to the ER with any worsening symptoms Please note that this report is being documented using Scientific Intake technology. This can lead to erroneous entry secondary to incorrect interpretation by the dictating instrument. Carlton Villanueva M.D. Oct 24, 2018 10:15
--- NOTE | 2018-10-24 10:22 | NUR ---
ED Nurse Note: blood was drawn and sent to lab. pt signed on consent for CT with contrast with daughter on the phone.
[2018-10-24 10:33] LABS: BASOPHILS % (AUTO) 0.8 % (0.0-2.0); EOSINOPHILS % (AUTO) 1.4 % (0.0-3.0); HEMATOCRIT 38.5 % (37.0-47.0); HEMOGLOBIN 12.9 G/DL (12.0-16.0); LYMPHOCYTES % (AUTO) 20.8 % (20.0-45.0); MEAN CORPUSCULAR VOLUME 94 FL (80-99); MONOCYTES % (AUTO) 12.5 % (1.0-10.0); NEUTROPHILS % (AUTO) 64.6 % (45.0-75.0); PLATELET COUNT 250 K/UL (150-450); RED BLOOD COUNT 4.11 M/UL (4.20-5.40); RED CELL DISTRIBUTION WIDTH 11.5 % (11.6-14.8); WHITE BLOOD COUNT 9.6 K/UL (4.8-10.8)
[2018-10-24 10:39] LABS: ANION GAP 9 mmol/L (5-15); BLOOD UREA NITROGEN 23 mg/dL (7-18); CALCIUM 9.7 MG/DL (8.5-10.1); CARBON DIOXIDE 28 MMOL/L (21-32); CHLORIDE 103 MMOL/L (98-107); CREATININE 1.5 MG/DL (0.55-1.30); POTASSIUM 3.2 MMOL/L (3.5-5.1); SODIUM 140 MMOL/L (136-145)
--- NOTE | 2018-10-24 10:45 | NUR ---
ED Nurse Note: Urine sample sent to the lab. pt ambulated to bathroom with steady gait.
[2018-10-24 10:46] LABS: ALANINE AMINOTRANSFERASE 40 U/L (12-78); ALBUMIN 3.3 G/DL (3.4-5.0); ALBUMIN/GLOBULIN RATIO 0.7 (1.0-2.7); ALKALINE PHOSPHATASE 113 U/L (46-116); ASPARTATE AMINO TRANSFERASE 34 U/L (15-37); BILIRUBIN,TOTAL 0.5 MG/DL (0.2-1.0)
--- NOTE | 2018-10-24 11:08 | NUR ---
ED Nurse Note: pt went down for CT with tech in stable condition. ERMD changed to CT without contrast due to high level of creatine.
[2018-10-24 11:13] LABS: APPEARANCE,URINE SLIGHTLY CLOUDY; BILIRUBIN, URINE NEGATIVE (NEGATIVE); COLOR,URINE YELLOW; GLUCOSE, URINE (UA) NEGATIVE (NEGATIVE); KETONES,URINE NEGATIVE (NEGATIVE); LEUKOCYTE ESTERASE ,URINE 2+ (NEGATIVE); NITRITE,URINE NEGATIVE (NEGATIVE); PH,URINE 5 (4.5-8.0); PROTEIN,URINE NEGATIVE (NEGATIVE); UROBILINOGEN,URINE NORMAL MG/DL (0.0-1.0)
--- NOTE | 2018-10-24 11:23 | NUR ---
ED Nurse Note: pt came back from CT with tech in stable condition.
--- NOTE | 2018-10-24 11:47 | Diagnostic Imaging Report ---
Indication: Age abdominal pain for 5 days, diarrhea, nausea, reflux-like symptoms Technique: Spiral acquisitions obtained through the abdomen and pelvis. No oral contrast utilized, per emergency room physician request No IV contrast utilized, . History of renal insufficiency.. Multiplanar reconstructions were generated. Total dose length product 1156.34 mGycm. CTDIvol(s) 19.28 mGy. Dose reduction achieved using automated exposure control Comparison: None Findings: Lack of enteric contrast limits assessment of the GI tract. The appendix is not visualized, but there are no findings to suggest acute appendicitis. Liquid stool is seen in the proximal colon, but normal feces demonstrated in the distal colon. There is no evidence of diverticulosis or diverticulitis. Distal small bowel is prominent with distal small bowel loops are fluid-filled. No bobo small bowel distention or transition point demonstrated. The distal esophagus, stomach, duodenum are unremarkable. No free or loculated intraperitoneal gas or fluid is evident. Lack of IV contrast limits assessment of solid organs. The gallbladder is surgically absent. The liver is equivocally somewhat hyperattenuating. The bile ducts, pancreas, spleen, adrenals, kidneys are unremarkable. No retroperitoneal or mesenteric mass or adenopathy. The uterus is absent, presumably postsurgically. No pelvic mass or adenopathy. The included lung bases demonstrate some posterior dependent atelectatic changes, are otherwise clear. The bones demonstrate mild degenerative spondylosis changes. Impression: Limited assessment of the GI tract, due to lack of enteric contrast administration Slightly prominent fluid-filled distal ileum and fluid-filled proximal colon, consistent with stated clinical history of diarrheal illness No acute process otherwise Surgically absent gallbladder and uterus Equivocally slightly hyperattenuating liver, could indicate amiodarone ingestion or storage disease if real Posterior dependent pulmonary atelectatic changes, mild degenerative spondylosis changes incidentally noted. The CT scanner at [facility] is accredited by the [employer] and the scans are performed using protocols designed to limit radiation exposure to as low as reasonably achievable to attain images of sufficient resolution adequate for diagnostic evaluation.
--- NOTE | 2018-10-24 12:03 | NUR ---
ED Nurse Note: ERMD explained pt and daughter on the phone about the results of exams.
[2018-10-24 12:24] VITALS: BP 136/77
--- NOTE | 2018-10-24 12:26 | NUR ---
ER DISCHARGE NOTE: Patient is cleared to be discharged per ERMD after speaking to the daughter on the phone, pt is aox4, on room air, with stable vital signs. pt was given dc instructions, pt was able to verbalize understanding, pt id band and iv site removed without complications. pt requested us to call access for her and it was arranged. pt is able to ambulate with steady gait. pt took all belongings.
--- NOTE | 2018-10-26 16:05 | Cardiology Report ---
APPROVED REPORT EKG Measurement Heart [id number] Sinus bradycardia Otherwise normal ECG
== END 2018-10-24 12:27 | disposition home or self-care (01) ==
LOC: EMR 10:13
DX: R19.7 Diarrhea, unspecified (principal); I10 Essential (primary) hypertension; J45.909 Unspecified asthma, uncomplicated; E11.9 Type 2 diabetes mellitus without complications
CPT/HCPCS: 36415; 74176; 80053; 81003; 83690; 85025; 93005; 96361; 96374; 99284; J2405